=== PATIENT | male | born 1975 | race African-American/Black ===

== ENCOUNTER 2018-08-07 10:45 | Inpatient (IN) ==
--- NOTE | 2018-08-07 10:25 | Discharge Summary ---
<Roberta Machuca - Last Filed: 08/07/18 12:58> Date of Encounter: 08/07/18 - Discharge Diagnosis (1) Status post total knee replacement, right Priority: Primary Status: Acute Comments: Opsite dressing, leave intact until first post-operative visit. If dressing becomes >50% saturated, contact office, remove dressing and place appropriate dressing in its place. Do not allow for dressing to get wet. Zipline/[place] in place, plan to remove at post-operative day #14-16. Total Joint Precautions x 6 weeks Apply cold therapy wrap 3-6x/day for 20 minutes at a time. Encourage ambulation throughout the day Use Incentive spirometer 10x/hour. Elevate affected extremity above heart as tolerated. Brace: Wear knee immobilizer at night until first post-operative appt. (2) Arthritis of knee, right Priority: Primary Status: Acute - Hospital Course Hospital course: Mr. Wild is a 43 year old male - Time Spent with Patient Total time spent providing and/or coordinating discharge services: - Discharge Medications Home Medications: Acetaminophen [Tylenol] 1,000 mg PO BID PRN 08/06/18 [History] Aspirin Enteric Coated [Aspirin EC] 325 mg PO BID #20 tablet. 08/07/18 [Rx] OxyCODONE Immed Rel [Roxicodone 5 MG] 5 mg PO Q6HR PRN 7 Days #28 tablet 08/07/18 [Rx] Allergies/Adverse Reactions: Allergy/AdvReac Type Severity Reaction Status Date / Time No Known Allergies Allergy Verified 08/02/18 15:44 Primary care physician: PCP NONE - Patient Status Disposition: Home, Self-Care Condition: Good - Discharge Instructions Follow Up With: NONE,PCP [Primary Care Provider] - <Cedric Starkey - Last Filed: 08/08/18 06:23> Orders not resulted at time of discharge: Pending orders 08/07/18 11:06 US anesthesia pain block [US] Routine 08/08/18 05:48 Basic Metabolic Panel AM 0400 08/09/18 04:00 Basic Metabolic Panel AM 0400 Hemoglobin and Hematocrit [HEME] AM 0400 Date of Encounter: 08/08/18 Time of Encounter: 06:22 - Discharge Diagnosis (1) Arthritis of knee, right Priority: Primary Status: Chronic (2) Status post total knee replacement, right Priority: Primary Status: Acute - Hospital Course Hospital course: Mr. Wild is a 43 year old male The patient had an uneventful postoperative course. They received antibiotics and physical therapy and were discharged in stable condition. There will follow-up in the office in 2 weeks. - Time Spent with Patient Total time spent providing and/or coordinating discharge services: Date of admission: 08/07/18 14:43 Primary care physician: PCP NONE Consults: 08/07/18 14:52 Consult to Occupational Therapy [CONS] Routine Comment: Evaluate, develop and implement POC Reason for Consult: post knee surgery Does patient have active BEDREST order?: No Is patient medically & hemodynamically stable?: Yes Consult to Orthopedic Navigator [CONS] [CONS] Routine Consult to Physical Therapy [CONS] Routine Comment: Evaluate, develop and impliment POC Reason for Consult: post knee surgery Does patient have active BEDREST order?: No Is patient medically & hemodynamically stable?: Yes Consult to Ditch Cleaner [CONS] Routine Reason for SW Consult: post op joint replacement RT Post Op Consult [CONS] Routine Labs on day of discharge: Labs from last 24 hours 08/08/18 08/07/18 05:48 13:59 Hgb 12.8 L 13.7 Hct 38.1 39.8 - Impressions ITS Impressions Knee X-Ray 08/07/18 11:09 IMPRESSION: Postoperative changes from right total knee arthroplasty. The surgical hardware is in appropriate position. D/ / Leonel Hughes MD / Leonel Hughes MD Interpreting Provider: Leonel Hughes MD - Patient Status Functional capacity at discharge: uses cane/walker Overall status at discharge: patient is progressing back to baseline
[2018-08-07] MEDS ORDERED: *HR* FentaNYL (PF) 100 MCG/2 ML VIAL ONE ×2 (10:52→11:33)
[2018-08-07] MEDS ORDERED: *HR* Midazolam HCl 2 MG/2 ML VIAL ONE ×2 (10:52→11:33)
[2018-08-07] MEDS ORDERED: *HR* Propofol 200 MG/20 ML VIAL IVP ONE (10:52)
[2018-08-07] MEDS ORDERED: Lidocaine -MPF 2% 2 ML VIAL ONE (10:52)
[2018-08-07] MEDS ORDERED: Dexamethasone 4 MG/ML VIAL ONE (10:54)
[2018-08-07] MEDS ORDERED: Ondansetron 4 MG/2 ML VIAL ONE (10:54)
--- NOTE | 2018-08-07 11:08 | Anesthesia Evaluation PreOp ---
Date of Encounter: 08/07/18 Time of Encounter: 11:06 - Past History Planned Operation: Left Total Knee replacement Cardiac History: Denies any Significant Hx Pulmonary History: Denies Any Significant HX SPRAY UNIT FEEDER History: Denies Any Significant HX Other Medical History: Denies Any Significant HX Anesthesia History: Past Anesthesia (Left Knee scope, Left hand, Neck Cyst), Problems (PONV) Alcohol Use: none Drug use: none Medications and Allergies Acetaminophen [Tylenol] 1,000 mg PO BID PRN 08/06/18 [History] Aspirin Enteric Coated [Aspirin EC] 325 mg PO BID #20 tablet. 08/07/18 [Rx] RX: OxyCODONE Immed Rel [Roxicodone 5 MG] 5 mg PO Q6HR PRN 7 Days #28 tablet 08/07/18 [Rx] Allergy/AdvReac Type Severity Reaction Status Date / Time No Known Allergies Allergy Verified 08/02/18 15:44 - Meds/Allergy Pre-op Review Medications Reviewed: Yes Allergies Reviewed: Yes Beta Blockers on Current Med List: No Anesthesia Results - Labs Laboratory Tests 08/02/18 08/02/18 08/02/18 15:44 15:44 15:44 WBC 7.0 Hgb 14.3 Hct 42.5 Plt Count 252 INR 1.0 Sodium 138 Potassium 4.6 Chloride 102 Carbon Dioxide 29 BUN 12 Creatinine 0.94 Anesthesia Exam NPO (# of Hours): > 8 Hrs Pain Scale: 0 Pain Scale Used: Numeric (1 - 10) - HEENT Pupil (Motor): Pupils equal, EOMI Mallampati: I Teeth: Normal Oral Opening: Greater than 3 - SPRAY UNIT FEEDER LOC: Oriented SPRAY UNIT FEEDER Motor: Normal RUE, Normal LUE, Normal RLE, Normal LLE, Normal Face SPRAY UNIT FEEDER Sensory: Normal: RUE, LUE, RLE, LLE, Face - Cardiac Rhythm: Regular Murmur: None JVD: No Carotid Bruit: No - Pulmonary Breath Sounds: bilateral Clear Respiratory Effort: Symmetrical Anesthesia Assess/Plan ASA Score: 1 Level of consciousness: Cooperative Anesthetic Plan: General, Regional Nerve Block Regional Nerve Block Plan: Adductor canal, IPACK Reason for No Neuroaxial/Regional Block: Patient refusal (Refuses spinal) Autologous Blood: Yes Monitoring Plan: Standard Monitors Recovery Plan: PACU
--- NOTE | 2018-08-07 11:09 | History & Physical Report ---
Date of Encounter: 08/07/18 Time of Encounter: 11:09 24 Hour HP Update - Instructions Instructions: If the History and Physical is less than 30 days old and was completed prior to A.M. admission and or procedure and has NOT been updated on calendar day of procedure please complete this update prior to performing procedure. - Update Patient reports changes in Medical Condition: No Changes in examination, assessment, or condition: No Changes in Medication: No Preop tests/diagnostics Reviewed: Yes Surgery Remains Indicated: Yes Consent for Planned Operative Procedure(s) Verified: Yes - Pre-Operative Checklist Preoperative Checklist Indicated: No Prophylactic Antibiotic Ordered: Yes Is VTE Prophylaxis Indicated?: Yes
[2018-08-07] MEDS ORDERED: CeFAZolin Syr 2,000MG/20 ML 2,000 MG/20 ML SYRINGE IVPB ONE (11:11)
[2018-08-07] MEDS ORDERED: Ringers Solution, Lactated 1,000 ML IVC SCH ×2 (11:15→14:52)
[2018-08-07] MEDS ORDERED: Scopolamine Patch 1.5 MG PATCH.TD72 TD ONE (11:17)
[2018-08-07] MEDS ORDERED: ROPIVACAINE HCL/PF 0.5% 30 ML VIAL ONE (11:21)
[2018-08-07] MEDS ORDERED: *HR* EPINEPHrine 1 MG/ML AMPUL ONE (11:22)
[2018-08-07] MEDS ORDERED: Ethanol\\Acetic Acid\\Na Ace\\Ben 1,000 ML IRRIG.SOLN IR ONE (11:37)
--- NOTE | 2018-08-07 11:50 | Anesthesia Procedures ---
Date of Encounter: 08/07/18 Time of Encounter: 11:48 Procedures: Anesthesia - Nerve Block Procedure Date: 08/07/18 Time: 11:48 Allergies/Adv Reactions: Allergies No Known Allergies Allergy (Verified 08/02/18 15:44) Pre-op Diagnosis: right knee arthritis Surgical Procedure: right knee arthroplasty Checklist: Correct Patient Identifier, Correct procedure, History checked Correct side: Right Blood Thinner: No Monitor Applied: EKG, BP, Pulse Oximetry Supplemental Oxygen via Nasal Cannula (L/min): 2 Sedation: Versed (mg): 4 Sedation: Fentanyl (mcg): 200 Indication: Post Op Analgesia Pre-op Neuro Deficits: No Block Type: Other (adductor canal, CHRIS, ipack) Catheter placed: No Sterile Technique: Yes Ultrasound used: Yes Anatomy identified: Yes Visual spread of Local: Yes Blood on Needle Aspiration: No Smooth Injection of Local: Yes Pain with Injection of Local: Yes Prep: Chlorhexadine Needle: 21 x 100 mm Stimuplex Local: Ropivacaine Volume (cc): 50 Number of Attempts: 1 Complications: None/effective block Vitals: see nurses notes
[2018-08-07] MEDS ORDERED: *HR* Succinylcholine 200 MG/10 ML VIAL IVP ONE (11:52)
[2018-08-07] MEDS ORDERED: Ondansetron 4 MG/2 ML VIAL IVP ONE (11:53)
[2018-08-07] MEDS ORDERED: *HR* HYDROmorphone (PF) 1 MG/ML SYRINGE IVP PRN (11:53)
[2018-08-07] MEDS ORDERED: *HR* OxyCODONE Immed Rel 5 MG TABLET PO PRN (11:53)
[2018-08-07] MEDS ORDERED: Acetaminophen IV 1,000 MG/100 ML INFUS..BTL ONE (11:55)
[2018-08-07] MEDS ORDERED: KETAMINE HCL 50 MG/ML SYRINGE IV ONE (11:55)
[2018-08-07] MEDS ORDERED: Metoclopramide 10 MG/2 ML VIAL ONE (12:17)
[2018-08-07] MEDS ORDERED: *HR* Magnesium Sulfate 1 GM/2 ML VIAL ONE (12:18)
[2018-08-07] MEDS ORDERED: EPHEDrine 50 MG/ML VIAL ONE (12:46)
--- NOTE | 2018-08-07 13:10 | Orthopedic Operative Note ---
Date of procedure: 08/07/18 Pre-op diagnosis: Right knee arthritis instability Post-op diagnosis: same Procedure: Procedure: Right robotic-assisted Total knee replacement Estimated blood loss: 200 cc Hardware: Metal and polyethylene replacement. Press-fit Maria Luisa Femur: 5 Tibia: 6 PS insert: 11 Patella: 39 Exam Under anesthesia: 6 degrees flexion contracture 11 degree varus as calculated by the robot full flexion and anterior instability Procedural Notes: Grade 4 arthritic changes medial compartment and patellofemoral joint, ACL tear. Operative procedure: The patient was brought to the operating room and placed on the operating room table. After general anesthesia was administered the operative knee was examined. Findings were noted in the exam under anesthesia. The operative extremity was prepped and draped in sterile surgical fashion. The patient received IV antibiotics prior to skin incision. A standard midline incision was made centered over the patella. The incision was made through the skin and subcutaneous tissue. A medial parapatellar tendon approach was performed. Care was taken to preserve tissue along the medial aspect of the patella. And to protect the patella tendon. The deep MCL was released off the medial tibia. The infra patella fat pad was excised. The patella was everted and cut was made at the level of the insertion of the quadriceps and patella tendon. The patella was sized the guide was seated and the lug holes are drilled. Knee was brought into flexion. Patient noted to have grade 4 arthritic changes no compartment patellofemoral joint complete ACL tear Steinmann pins were placed in the tibia and the femur for the tibial and femoral arrays respectively. Checkpoints were also placed in the tibia and the femur for calculation purposes. The knee including the femur and the tibial registered. Osteophytes and PCL were excised at this point. Extension and flexion were assessed with a valgus stress components were adjusted on the computer to balance the knee. Femoral cuts were made first with robotic assistance, these included the anterior cut posterior cuts chamfer cuts. Tibial cut was then performed with robotic assistance as well. Bone fragments were removed, as well as the medial and lateral meniscus. The size 5 femoral guide was seated box cut was made lug holes are drilled. The size 6 tibial tray was seated and prepared with the fin cutter. Trial reduction with the 11 PS Alyson revealed extension of 0 degree and 7 degree varus full flexion. No varus valgus instability. Trial reduction revealed excellent patella tracking. All trial components were removed all bony surfaces were irrigated. The Tibia was seated followed by the femur, The selected Alyson size was seated and secured patella. Patient had similar findings for motion and stability. The knee was closed by the PA. The knee was then irrigated out with 2 L of pulse irrigation. The extensor mechanism was closed with #2 FiberWire suture and #2 PDS suture. The subcutaneous tissue was then irrigated and closed deep with #1 PDS suture superficially with 0 PDS suture and skin was closed with zip tie The patient was then placed in a sterile dressing and a postoperative brace extubated and transferred to recovery room in stable condition. Anesthesia: GETA Surgeon: Cedric Starkey Was there an assistant chief nursing officer present: Yes Bottom Saw Operator: Roberta Machuca Estimated blood loss (cc): 200 Condition: stable Disposition: PACU
[2018-08-07] MEDS ORDERED: Ketorolac 30 MG/ML VIAL ONE (13:11)
--- NOTE | 2018-08-07 14:17 | Anesthesia Evaluation Post Op ---
Date of Encounter: 08/07/18 Time of Encounter: 14:16 - Vital Signs Vital Signs: Vital Signs/O2 Sat, Most Current Temp Pulse Resp BP Pulse Ox 97.8 F 62 14 142/98 96 08/07/18 14:10 08/07/18 14:10 08/07/18 14:10 08/07/18 14:00 08/07/18 14:10 - Lungs Lungs: Clear Ascult./Percussion - Airway Airway: Non-obstructed - Cardiovascular Regular Rate - Mental Status Mental Status: Alert & Oriented, Answers Appropriately - Pain Pain Scale: 0 Pain Scale used: Numeric (1 - 10) - Nausea Vomiting Nausea Vomiting: Not Present - Hydration Hydration: Tolerates oral liquids, Has not voided - Discharge PostOp Status: Transfer Patient to floor
[2018-08-07 14:19] LABS: Hematocrit 39.8 % (37.5-50.1); Hemoglobin 13.7 g/dL (12.9-16.9)
[2018-08-07] MEDS ORDERED: Naloxone 0.4 MG/ML INJ IVP PRN (14:52)
[2018-08-07] MEDS ORDERED: *HR* OxyCODONE/APAP 5/325 TABLET PO PRN (14:52)
[2018-08-07] MEDS ORDERED: Temazepam 15 MG CAPSULE PO PRN (14:52)
[2018-08-07] MEDS ORDERED: MOM Conc 10 ML UD.LIQ PO PRN (14:52)
[2018-08-07] MEDS ORDERED: Sennosides 8.6 MG TABLET PO PRN (14:52)
[2018-08-07] MEDS ORDERED: Ondansetron 4 MG/2 ML VIAL IVP PRN (14:52)
[2018-08-07] MEDS ORDERED: traMADol 50 MG TABLET PO PRN (14:52)
[2018-08-07] MEDS: *HR* OxyCODONE Immed Rel 5 MG TABLET PO PRN ×2 (17:06→21:06)
[2018-08-07] MEDS: *HR* Enoxaparin 30 MG/0.3 ML SYRINGE SQ SCH (17:06)
[2018-08-07] MEDS ORDERED: *HR* Enoxaparin 30 MG/0.3 ML SYRINGE SQ SCH (18:00)
[2018-08-08] MEDS: *HR* OxyCODONE Immed Rel 5 MG TABLET PO PRN ×3 (01:17→10:04)
[2018-08-08] MEDS: *HR* Enoxaparin 30 MG/0.3 ML SYRINGE SQ SCH (04:37)
[2018-08-08 06:09] LABS: Hematocrit 38.1 % (37.5-50.1); Hemoglobin 12.8 g/dL (12.9-16.9)
--- NOTE | 2018-08-08 06:24 | Orthopedics Progress Note ---
Date of Encounter: 08/08/18 Time of Encounter: 06:23 - Assessment and Plan (1) Arthritis of knee, right Current Visit: No Status: Chronic (2) Status post total knee replacement, right Current Visit: No Status: Acute Subjective Interval history: Patient was seen this morning doing well without complaints. Afebrile vital signs stable. Operative extremity: Neurovascularly intact Dressing clean dry and intact Calves nontender Assessment and plan: Continue with postoperative care Discharged today Objective Vital signs: Vital Signs Temp Pulse Resp BP Pulse Ox 08/08/18 05:44 98.6 F 80 16 122/73 94 08/07/18 23:55 98.6 F 98 18 142/80 99 08/07/18 19:05 98.1 F 100 18 144/83 98 08/07/18 16:30 97.8 F 82 16 140/79 98 08/07/18 15:26 97.6 F 60 15 166/90 98 08/07/18 14:40 97.5 F L 75 16 154/91 100 08/07/18 14:30 97.4 F L 72 16 149/97 100 08/07/18 14:10 97.8 F 62 14 96 08/07/18 14:00 74 14 142/98 95 08/07/18 13:50 61 14 137/101 96 08/07/18 13:40 97.6 F 98 14 136/74 100 08/07/18 11:59 72 18 138/88 99 08/07/18 11:48 66 18 150/86 98 08/07/18 11:36 72 18 129/102 93 08/07/18 11:30 97.8 F 69 18 156/97 98 08/07/18 11:24 74 18 144/113 99 08/07/18 11:04 97.8 F 69 18 156/97 98 Intake and Output 08/07/18 08/07/18 08/08/18 15:59 23:59 06:59 Intake Total 100 / 100 440 / 440 Output Total 200 / 200 200 / 200 500 / 500 Balance -100 / -100 240 / 240 -500 / -500 Intake: IV Fluids 100 / 100 Ancef 2,000 MG In 0.9 % Sodium 100 / 100 Chloride 100 ML @ 200 mls/hr IVPB Q8H [facility] Rx#:[id number] Oral 100 / 100 340 / 340 Output: Urine 200 / 200 500 / 500 Estimated Blood Loss 200 / 200 Other: Meal Dinner Percent of Meal Consumed 80% # Voids 2 Weight 81.647 kg - Labs CBC & BMP: 08/08/18 05:48 Labs: Abnormal lab results Hgb 12.8 g/dL (12.9-16.9) L 08/08/18 05:48 Consult Discharge Plan - Plan Referrals: NONE,PCP [Primary Care Provider] -
[2018-08-08 06:33] LABS: BUN/Creatinine Ratio 12 (6-26); Blood Urea Nitrogen 14 mg/dL (6-20); Carbon Dioxide 24 mEq/L (23-29); Chloride 101 mEq/L (98-107); Glucose 140 mg/dL (70-105); Osmolality,Calculated 279 (280-300); Potassium 4.6 mEq/L (3.5-5.1); Sodium 133 mEq/L (136-145); eGFR For Non-African Americans > 60 (> 60)
[2018-08-08 07:17] VITALS: BP 128/78
--- NOTE | 2018-08-10 09:09 | Physician Discharge Referral ---
Home Health/Hosp Referral Info Transfer to: Home Health Provider in Charge Post Discharge: PCP - Diagnosis (1) Status post total knee replacement, right Priority: Primary Status: Acute (2) Arthritis of knee, right Priority: Primary Status: Chronic - Respiratory Orders None Smoking Cessation: Smoking cessation has been advised. For more information, call the [place] Tobacco Quit Line at 9-831-VJDB-NOW. - Diet/Nutrition Diet/Nutrition Orders: Regular - Activity Activity Orders: Up ad nupur, Ambulate, Walker - Services Needed Following services are medically necessary services: Nursing, Home Health Aide, Physical Therapy, Occupational Therapy Home Care Orders: Opsite dressing, leave intact until first post-operative visit. If dressing becomes >50% saturated, contact office, remove dressing and place appropriate dressing in its place. Do not allow for dressing to get wet. Zipline in place, plan to remove at post-operative day #14-16. Total Joint Precautions x 6 weeks Apply cold therapy wrap 3-6x/day for 20 minutes at a time. Encourage ambulation throughout the day Use Incentive spirometer 10x/hour. Elevate affected extremity above heart as tolerated. Brace: Wear knee immobilizer at night until first post-operative appt. - Transfer Medications Home Medications: Acetaminophen [Tylenol] 1,000 mg PO BID PRN 08/06/18 [History] Aspirin Enteric Coated [Aspirin EC] 325 mg PO BID #20 tablet. 08/07/18 [Rx] OxyCODONE Immed Rel [Roxicodone 5 MG] 5 mg PO Q6HR PRN 7 Days #28 tablet 08/07/18 [Rx] Allergies/Adverse Reactions: Allergy/AdvReac Type Severity Reaction Status Date / Time No Known Allergies Allergy Verified 08/02/18 15:44 Certification: Further, I certify that my clinical findings support that this patient is homebound (i.e. absences from home require considerable and taxing effort and are for medical reasons or mandaeism services or infrequently or short duration when for other reasons) because: Homebound Reason: Post-surgery restriction and or conditions limit ability to leave home Attestation: My signature below is to certify that this patient is under my care and that I, or nurse practitioner, or a physician's captain assistant working with me, has a [id number] encounter with this patient.
== END 2018-08-08 12:45 | disposition home or self-care (01) | DRG 470 ==
LOC: SAMDAY 10:45 → 3NENU 14:43
PROVIDERS: ADMIT Orthopaedic Surgery; ATTEND Orthopaedic Surgery